=== PATIENT | male | born 1980 | race American Indian/Alaskan Native ===

== ENCOUNTER 2021-10-10 21:30 | Emergency (ER) | payer SELFPAY ==
[2021-10-10] MEDS ORDERED: Acetaminophen/HYDROcodone 325-10 MG Tab PO ONE (21:31)
--- NOTE | 2021-10-10 22:28 | EDM.PDOC ---
ED HPI GENERAL MEDICAL PROBLEM - General Chief Complaint: Lower Extremity Injury/Pain Stated Complaint: KNEE SIZE OF SOFTBALL, HYPER EXTENDED IT Time Seen by Provider: 10/10/21 22:15 Source of Information: Reports: Patient History Limitations: Reports: No Limitations - History of Present Illness INITIAL COMMENTS - FREE TEXT/NARRATIVE: This 41 yo male patient reports to the ED with pain in his right knee. The patient reports he was walking with his son on Saturday when he stepped off a curb and hyperextended his knee. Since that time, the patient has been resting, icing and elevating his left knee. The patient reports here today due to an increase in pain. The patient reports he has been taking ibuprofen. Onset Date: 10/07/21 Duration: Constant, Getting Worse Location: Reports: Lower Extremity, Right Quality: Reports: Ache, Throbbing Severity: Moderate Improves with: Reports: Rest Worsens with: Reports: Movement Context: Reports: Activity Associated Symptoms: Reports: No Other Symptoms Treatments CABLE SWAGER: Reports: NSAIDS Right Knee Pain Score (Numeric/FACES): 9 Social & Family History - Tobacco Use Tobacco Use Status *Q: Light Tobacco User Years of Tobacco use: 1 Packs/Tins Daily: 0.2 Review of Systems - Review of Systems Review Of Systems: Comprehensive ROS is negative, except as noted in HPI. ED EXAM, GENERAL - Physical Exam Exam: See Below Exam Limited By: No Limitations General Appearance: Alert, WD/WN, Moderate Distress Eye Exam: Bilateral Eye: EOMI, Normal Inspection, PERRL Ears: Normal External Exam, Normal Canal, Hearing Grossly Normal, Normal TMs Nose: Normal Inspection, Normal Mucosa, No Blood Throat/Mouth: Normal Inspection, Normal Lips, Normal Teeth, Normal Gums, Normal Oropharynx, Normal Voice, No Airway Compromise Head: Atraumatic, Normocephalic Neck: Normal Inspection, Supple, Non-Tender, Full Range of Motion Respiratory/Chest: No Respiratory Distress, Lungs Clear, Normal Breath Sounds, No Accessory Muscle Use, Chest Non-Tender Cardiovascular: Normal Peripheral Pulses, Regular Rate, Rhythm, No Edema, No Gallop, No JVD, No Murmur, No Rub GI/Abdominal: Normal Bowel Sounds, Soft, Non-Tender, No Organomegaly, No Distention, No Abnormal Bruit, No Mass (Male) Exam: Deferred Rectal (Males) Exam: Deferred Back Exam: Normal Inspection, Full Range of Motion, NT Extremities: Leg Pain (right knee swollen), Limited Range of Motion Neurological: Alert, Oriented, CN II-XII Intact, Normal Cognition, Normal Gait, Normal Reflexes, No Motor/Sensory Deficits Psychiatric: Normal Affect, Normal Mood Skin Exam: Warm, Dry, Intact, Normal Color, No Rash Lymphatic: No Adenopathy Course - Vital Signs Last Recorded V/S: Last Vital Signs Temp 98.2 F 10/10/21 21:37 Pulse 82 10/10/21 21:37 Resp 18 10/10/21 21:37 BP 163/106 H 10/10/21 21:37 Pulse Ox 93 L 10/10/21 21:37 - Orders/Labs/Meds Orders: Active Orders 24 hr Category Date Time Status Knee 3V Rt [CR] Urgent Exams 10/10/21 21:45 Taken Departure - Departure Time of Disposition: 22:52 Disposition: Home, Self-Care 01 Condition: Fair Clinical Impression: Hyperextension injury Strain of right knee Qualifiers: Encounter type: initial encounter Qualified Code(s): S86.911A - Strain of unspecified muscle(s) and tendon(s) at lower leg level, right leg, initial encounter - Discharge Information *PRESCRIPTION DRUG MONITORING PROGRAM REVIEWED*: Not Applicable *COPY OF PRESCRIPTION DRUG MONITORING REPORT IN PATIENT DANIEL: Not Applicable Instructions: Crutch Use, Adult, [id number], How to Use a Knee Immobilizer, [id number] Forms: ED Department Discharge Care Plan Goals: The patient was advised of the examination and x-ray results during the visit. The patient was placed in a right knee immobilizer and given a set of crutches during the visit. The patient was discharged with [place] (10/) #2 to take 1 by mouth every 6 hours as needed for pain. The patient was encouraged to follow-up with his primary care facility in 1 week for continued evaluation (MRI) and management. If the patient has any additional symptoms or concerns, the patient should either return to the emergency department or visit his primary care facility. Sepsis Event Note (ED) - Evaluation Sepsis Screening Result: No Definite Risk - Focused Exam Vital Signs: Vital Signs Temp Pulse Resp BP Pulse Ox 10/10/21 21:37 98.2 F 82 18 163/106 H 93 L - My Orders Last 24 Hours: My Active Orders 10/10/21 21:45 Knee 3V Rt [CR] Urgent - Assessment/Plan Last 24 Hours: My Active Orders 10/10/21 21:45 Knee 3V Rt [CR] Urgent
[2021-10-10] MEDS ORDERED: Acetaminophen/HYDROcodone 325-10 MG Tab ONE (22:56)
--- NOTE | 2021-10-10 23:03 | CR ---
PROCEDURE INFORMATION: Exam: XR Right Knee Exam date and time: 10/10/2021 9:50 PM Age: 41 years old Clinical indication: Other: Right knee pain TECHNIQUE: Imaging protocol: XR Right knee. Views: 3 views. COMPARISON: No relevant prior studies available. FINDINGS: Bones/joints: There is normal osseous mineralization. There are no suspicious lytic or osteosclerotic lesions. Normal alignment. No fracture deformity. No callus formation. No periarticular osteophytes or erosions. No loose bodies. Some effacement of suprapatellar fat suggests an effusion. Soft tissues: No soft tissue calcifications, gas or foreign body. IMPRESSION: Suspect knee joint effusion.
== END 2021-10-10 23:16 | disposition home or self-care (01) ==
LOC: DL.ED 21:30
DX: S86.911A Strain of unspecified muscle(s) and tendon(s) at lower leg level, right leg, initial encounter (principal); Z72.0 Tobacco use; X50.1XXA Overexertion from prolonged static or awkward postures, initial encounter; Y93.01 Activity, walking, marching and hiking
CPT/HCPCS: 73562; 99283; A9270